=== PATIENT | male | born 1945 | race Caucasian/White ===

== ENCOUNTER 2019-03-16 13:04 | Outpatient (CLI) | payer MEDICARE, BC | END 2019-03-16 13:05 | disposition home or self-care (01) | LOC: RT 13:04 | PROVIDERS: ATTEND Internal Medicine Cardiovascular Disease | DX: I25.119 Atherosclerotic heart disease of native coronary artery with unspecified angina pectoris (principal) | CPT/HCPCS: 93005 ==

== ENCOUNTER 2019-03-26 08:09 | Outpatient (CLI) | payer MEDICARE, BC ==
--- NOTE | 2019-03-26 12:55 | Ultrasound Report ---
Reason: PERSONAL HISTORY HISTORY OF NICOTINE DEPENDENCE Procedure Date: 03/26/2019 Accession Number: [id number] / [id number] Procedure: US - Aorta Screening CPT Code: FULL RESULT: EXAM: AORTIC DOPPLER ULTRASOUND EXAM DATE: 03/26/2019 08:29 AM. CLINICAL HISTORY: Personal history history of nicotine dependence. COMPARISON: None. TECHNIQUE: Real-time sonographic imaging of retroperitoneal vascular structures, including color-flow, Doppler flow and spectral analysis was performed by the manager dialysis. Multiple inside account representative static images were saved for review. FINDINGS: Aorta: The abdominal aorta was adequately visualized. No evidence for abdominal aortic aneurysm. Mild atheromatous plaques are noted in the abdominal aorta. Aorta: Proxima: Sagittal AP 2.5 cm. Mid: Transverse 1.8 x 1.8 cm. Distal: Transverse 1.6 x 1.7 cm. Caliber: WNL: Yes. Plaque visualized: Yes, small. Iliacs: Right Iliac: Transverse 0.9 x 1.0 cm. Left Iliac: Transverse 0.9 x 1.0 cm. Iliac Vessels: The visualized proximal common iliac arteries are normal in caliber. Other: None. IMPRESSION: No abdominal aortic aneurysm. [facility]
== END 2019-03-26 08:10 | disposition home or self-care (01) ==
LOC: DI 08:09
PROVIDERS: ATTEND Family Medicine
DX: Z13.6 Encounter for screening for cardiovascular disorders (principal); Z87.891 Personal history of nicotine dependence
CPT/HCPCS: 76706

== ENCOUNTER 2019-03-26 08:11 | Outpatient (CLI) | payer MEDICARE, BC | END 2019-03-26 08:12 | disposition home or self-care (01) | LOC: DI 08:11 | PROVIDERS: ATTEND Internal Medicine Cardiovascular Disease | DX: R07.9 Chest pain, unspecified (principal); Z13.6 Encounter for screening for cardiovascular disorders; Z87.891 Personal history of nicotine dependence | CPT/HCPCS: 76706; 93306 ==

== ENCOUNTER 2019-08-25 10:05 | Outpatient (CLI) | payer MEDICARE, BC ==
--- NOTE | 2019-08-27 21:55 | XRAY Report ---
Reason: FOOT PAIN LEFT Procedure Date: 08/25/2019 Accession Number: [id number] / [id number] Procedure: XR - Foot 3 View LT CPT Code: FULL RESULT: EXAM: LEFT FOOT RADIOGRAPHY EXAM DATE: 08/25/2019 10:30 AM. CLINICAL HISTORY: FOOT PAIN LEFT, posttraumatic. COMPARISON: None. TECHNIQUE: 3 views. FINDINGS: Bones: Normal. No fractures or bone lesions. Joints: Normal. No subluxations. Soft Tissues: Normal. No soft tissue swelling. IMPRESSION: Normal foot radiography. [facility]
== END 2019-08-25 10:06 | disposition home or self-care (01) ==
LOC: DI 10:05
PROVIDERS: ATTEND Nurse Practitioner Family
DX: M79.672 Pain in left foot (principal)

== ENCOUNTER 2020-10-18 14:47 | Outpatient (CLI) | payer MEDICARE, BC ==
--- NOTE | 2020-10-18 15:18 | XRAY Report ---
PROCEDURE: Lumbar Spine 2 View INDICATIONS: CHRONIC LOW BACK PAIN TECHNIQUE: 2 views of the lumbar spine were acquired. COMPARISON: None. FINDINGS: Bones: 5 [id number] vertebrae are present. There is normal bony alignment. Multilevel disc spa ce narrowing and endplate osteophyte formation, worst at L3-L4, L4-L5, and L5-S1, indicating degenera tive disc disease. Assess hypertrophy throughout the mid and lower lumbar spine. No vertebral body co mpression fractures. No suspicious bony lesions. Soft tissues: Overlying bowel gas pattern is normal. No suspicious soft tissue calcifications. IMPRESSION: Multilevel degenerative disc and facet disease. No acute fracture. No osseous lesion. If symptoms and/or clinical suspicion for pathology continue, further assessment with repeat plain film s, or advanced imaging (e.g., CT, MRI, or bone scan) is recommended for further assessment. Reviewed by: Noe Mackay MD on 10/18/2020 3:16 PM PST Approved by: Noe Mackay MD on 10/18/2020 3:16 PM PST Station ID: [id number]
== END 2020-10-18 14:48 | disposition home or self-care (01) ==
LOC: DI.S 14:47
PROVIDERS: ATTEND Family Medicine
DX: M47.816 Spondylosis without myelopathy or radiculopathy, lumbar region (principal); M51.36 Other intervertebral disc degeneration, lumbar region; M51.37 Other intervertebral disc degeneration, lumbosacral region

== ENCOUNTER 2021-11-24 12:19 | Outpatient (CLI) | payer MEDICARE, OTHER ==
--- NOTE | 2021-11-24 13:00 | XRAY Report ---
PROCEDURE: Hips 2V BILAT INDICATIONS: CHRONIC LOW BACK PAIN TECHNIQUE: AP view of the pelvis. Lateral view of the bilateral hips were acquired. COMPARISON: None. FINDINGS: BONES/JOINT: No acute, displaced fracture or dislocation. Mild joint space narrowing with periarticul ar osteophyte formation. No widening of the pubic symphysis. The superior aspect of the right SI joint is not well seen. The remaining portions of the sacroiliac joints appear patent. SOFT TISSUES: No focal abnormality. IMPRESSION: 1.No acute osseous adenopathy. Reviewed by: Wili Brambila MD on 11/24/2021 12:59 PM PST Approved by: Wili Brambila MD on 11/24/2021 12:59 PM PST Station ID: [id number]
--- NOTE | 2021-11-24 13:44 | XRAY Report ---
PROCEDURE: Lumbar Spine Complete INDICATIONS: LOW BACK PAIN, UNSPECIFIED TECHNIQUE: 5 views of the lumbar spine were acquired. COMPARISON: October 18, 2020 FINDINGS: L-SPINE: Diffuse osteopenia. No acute displaced fracture or malalignment. The vertebral body heights are maintained. Mild disc height loss, most prominent at L4-S1. Facet arthrosis, most prominent at L 5-S1. The sacroiliac joints appear patent. SOFT TISSUES: No focal abnormality. Calcified edematous change of the aorta. IMPRESSION: 1.No acute osseous abnormality of the lumbar spine. Reviewed by: Wili Brambila MD on 11/24/2021 1:42 PM PST Approved by: Wili Brambila MD on 11/24/2021 1:42 PM [facility] Station ID: [id number]
== END 2021-11-24 12:20 | disposition home or self-care (01) ==
LOC: DI.S 12:19
PROVIDERS: ATTEND Nurse Practitioner Family
DX: M54.50 Low back pain, unspecified (principal)

== ENCOUNTER 2022-11-25 18:39 | Emergency (ER) | payer MEDICARE, OTHER ==
[2022-11-25 18:57] VITALS: BP 120/65
--- NOTE | 2022-11-25 19:13 | ED Physician Documentation ---
PD HPI ABD PAIN - Stated complaint Stated Complaint: MALE - Chief complaint Chief Complaint: Abd Pain - History obtained from History obtained from: Patient - Additional information Additional information: Had a laminectomy earlier in the day at another facility. It was a same-day surgery. He has not been able to urinate since the surgery. Denies back pain, no incontinence, no perineal numbness. PD PAST MEDICAL HISTORY - Allergies Allergies/Adverse Reactions: Allergies Allergy/AdvReac Type Severity Reaction Status Date / Time No Known Drug Allergies Allergy Verified 11/25/22 18:56 PD ED PE NORMAL - Vitals Vital signs reviewed: Yes - General General: Alert and oriented X 3, No acute distress - Abdomen Abdomen: Normal bowel sounds, Soft, Non tender - Neuro Neuro: Alert and oriented X 3, ore trimmer 2-12 intact, No motor deficit, No sensory deficit, Normal speech, Other (Normal gait) Eye Opening: Spontaneous Motor: Obeys Commands Verbal: Oriented GCS Score: 15 Results - Vitals Vitals: Vital Signs - 24 hr 11/25/22 18:53 Temperature 36.7 C Heart Rate 81 Respiratory 16 Rate Blood Pressure 120/65 O2 Saturation 94 Oxygen O2 Source Room air PD Medical Decision Making - ED course ED course: 76-year-old gentleman presents with postoperative urinary retention. He had greater than 800 mL on bedside ultrasound and a Gonzalez was placed with relief. Departure - Departure Disposition: 01 Home, Self Care Clinical Impression: Postoperative urinary retention Condition: Good Record reviewed to determine appropriate education?: Yes Instructions: ED Catheter Care Gonzalez, ED Retention Urinary Male Comments: Catheter should be removed probably around Wednesday. Return for new or worsening symptoms.
== END 2022-11-25 20:27 | disposition home or self-care (01) ==
LOC: ED 18:39
DX: M96.89 Other intraoperative and postprocedural complications and disorders of the musculoskeletal system (principal); R33.8 Other retention of urine
CPT/HCPCS: 51798; 99283